=== PATIENT | female | born 1995 | race Caucasian/White ===

== ENCOUNTER 2020-01-16 00:26 | Emergency (ER) | payer MEDICAID, OTHER ==
[2020-01-16] MEDS ORDERED: Sodium Chloride 0.9% 1,000 ML IV ONE (00:47)
--- NOTE | 2020-01-16 00:54 | EDM.PDOCBH ---
ED HPI GENERAL MEDICAL PROBLEM - General Chief Complaint: Drug or Alcohol Abuse Stated Complaint: [facility] Time Seen by Provider: 01/16/20 00:48 Source of Information: Reports: Patient, EMS History Limitations: Reports: Intoxication - History of Present Illness INITIAL COMMENTS - FREE TEXT/NARRATIVE: TRIAGE NOTE -- Pt presents to ER with [facility] for complaints of alcohol intoxication. Pt apparently had "a lot of [employer] tonight" and then EMS/PD were called to scene for an unknown reason. Upon EMS arrival, pt smelled strongly of ETOH and was combative with them en route to the ER. Upon arrival to the ER, pt alert to verbal. Pt vomiting and dry heaving. Pt states that she has a hx of asthma and hasn't drank in 3 years. EMS stated that pt has gone to multiple parties with a lot of people at them recently and had a negative COVID test on 12/16/19, but is still having complaints of a cough. Pt answering RNs questions mildly appropriately when asked questions. Pt states that she has a hx of asthma. The patient insists that this episode of intoxication is isolated and is a first for her. Denies previous bouts such as this. Non-smoker. Denies any chronic medical problems or medications. Denies any surgeries. No other focused history can be obtained secondary to the patient's intoxicated state. - Related Data Allergies Allergy/AdvReac Type Severity Reaction Status Date / Time vancomycin Allergy Anaphylactic Verified 01/16/20 00:48 Shock Home Meds: Home Meds Venlafaxine [Effexor] 75 mg PO BID 12/17/18 [History] ClonazePAM [KlonoPIN] 2 mg PO DAILY #3 tablet 01/16/20 [Rx] Past Medical History - Past Health History Medical/Surgical History: Denies Medical/Surgical History HEENT History: Reports: Impaired Vision Cardiovascular History: Reports: None Respiratory History: Reports: Asthma, Other (See Below) Other Respiratory History: Bronchitis, pneumonia Gastrointestinal History: Reports: None Genitourinary History: Reports: STD, UTI, Recurrent [employer]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: Musculoskeletal History: Reports: None Neurological History: Reports: Concussion, Migraines Psychiatric History: Reports: Addiction, Anxiety, Bipolar, Depression, Suicidal Ideation, Other (See Below) Endocrine/Metabolic History: Reports: None Hematologic History: Reports: Blood Transfusion(s) Immunologic History: Reports: None Oncologic (Cancer) History: Reports: None Dermatologic History: Reports: None - Infectious Disease History Infectious Disease History: Reports: Chicken Pox, Shingles - Past Surgical History Cardiovascular Surgical History: Reports: None Respiratory Surgical History: Reports: None GI Surgical History: Reports: None Female Surgical History: Reports: D&C Endocrine Surgical History: Reports: None Neurological Surgical History: Reports: None Musculoskeletal Surgical History: Reports: None Oncologic Surgical History: Reports: None Dermatological Surgical History: Reports: None Social & Family History - Family History Family Medical History: Noncontributory Cardiac: Reports: Heart Murmur, Other (See Below) Other Cardiac Family History: Congestive Heart failure Respiratory: Reports: Asthma : Reports: UTI, Recurrent Musculoskeletal: Reports: Arthritis Neurological: Reports: Alzheimers Disease, Dementia, Migraines Psychiatric: Reports: ADHD, Anxiety, Autism, Bipolar, Depression, Panic Attack, Suicide Attempt Endocrine/Metabolic: Reports: Diabetes, type II, Hyperthyroidism Oncologic: Reports: Colon, Skin - Tobacco Use Smoking Status *Q: Never Smoker - Caffeine Use Caffeine Use: Reports: Soda Caffeine Use Comment: Unknown - Recreational Drug Use Recreational Drug Use: No - Living Situation & Occupation Living situation: Reports: with Significant Other ED ROS GENERAL - Review of Systems Review Of Systems: Comprehensive ROS is negative, except as noted in HPI. ED EXAM, BEHAVIORAL HEALTH - Physical Exam Exam: See Below Exam Limited By: No Limitations General Appearance: WD/WN, No Apparent Distress, Other (A bit somnolent at this point) Eye Exam: Bilateral Eye: EOMI, PERRL Ears: Normal External Exam Nose: Normal Inspection Throat/Mouth: Normal Inspection Head: Atraumatic, Normocephalic Neck: Normal Inspection, Supple, Non-Tender Respiratory/Chest: No Respiratory Distress, Lungs Clear, Normal Breath Sounds, No Accessory Muscle Use Cardiovascular: Regular Rate, Rhythm GI/Abdominal: Soft, Non-Tender Back Exam: Normal Inspection Extremities: Normal Inspection, Non-Tender, No Pedal Edema Neurological: Alert (Arousable to attentiveness and responsiveness but drops off to sleep readily), No Motor/Sensory Deficits Psychiatric: Other (Withdrawn) Skin Exam: Warm, Dry COURSE, BEHAVIORAL HEALTH COMP - Course Vital Signs: Last Vital Signs Temp 35.5 C L 01/16/20 00:43 Pulse 91 01/16/20 00:43 Resp 14 01/16/20 00:43 BP 98/68 01/16/20 00:43 Pulse Ox 100 01/16/20 00:43 Orders, Labs, Meds: Active Orders 24 hr Category Date Time Status CULTURE URINE [RM] Stat Lab 01/16/20 04:24 Received HEPATITIS B SURFACE AG [CHEM] Stat Lab 01/16/20 01:25 Received Sodium Chloride 0.9% [Normal Saline] 1,000 ml Med 01/16/20 03:30 Active IV ASDIRECTED Medication Orders Sodium Chloride (Normal Saline) 1,000 mls @ 150 mls/hr IV ASDIRECTED URSZULA Last Admin: 01/16/20 03:37 Dose: 150 mls/hr Laboratory Tests 01/16/20 01/16/20 01/16/20 Range/Units 01:00 01:00 01:00 WBC 8.38 (3.98-10.04) K/mm3 RBC 4.12 (3.98-5.22) M/mm3 Hgb 12.0 (11.2-15.7) gm/dl Hct 38.4 (34.1-44.9) % MCV 93.2 (79.4-94.8) fl MCH 29.1 (25.6-32.2) pg MCHC 31.3 L (32.2-35.5) g/dl RDW Std Deviation 50.5 H (36.4-46.3) fL Plt Count 219 (182-369) K/mm3 MPV 10.3 (9.4-12.3) fl Neutrophils % (Manual) 62 H (40-60) % Band Neutrophils % 0 (0-10) % Lymphocytes % (Manual) 26 (20-40) % Atypical Lymphs % 0 % Monocytes % (Manual) 8 (2-10) % Eosinophils % (Manual) 3 (0.7-5.8) % Basophils % (Manual) 1 (0.1-1.2) Platelet Estimate Adequate RBC Morph Comment Normal Sodium 142 (136-145) mEq/L Potassium 4.1 (3.5-5.1) mEq/L Chloride 106 (98-107) mEq/L Carbon Dioxide 25 (21-32) mEq/L Anion Gap 15.1 H (5-15) BUN 15 (7-18) mg/dL Creatinine 0.7 (0.55-1.02) mg/dL Est Cr Clr Drug Dosing 114.01 mL/min Estimated GFR (MDRD) > 60 (>60) mL/min BUN/Creatinine Ratio 21.4 H (14-18) Glucose 113 H (74-106) mg/dL Calcium 9.1 (8.5-10.1) mg/dL Total Bilirubin 0.3 (0.2-1.0) mg/dL AST 34 (15-37) U/L ALT 16 (14-59) U/L Alkaline Phosphatase 64 (46-116) U/L Total Protein 7.6 (6.4-8.2) g/dl Albumin 4.0 (3.4-5.0) g/dl Globulin 3.6 gm/dL Albumin/Globulin Ratio 1.1 (1-2) Urine Color (Yellow) Urine Appearance (Clear) Urine pH (5.0-8.0) Ur Specific [place] (1.005-1.030) Urine Protein (Negative) Urine Glucose (UA) (Negative) Urine Ketones (Negative) Urine Occult Blood (Negative) Urine Nitrite (Negative) Urine Bilirubin (Negative) Urine Urobilinogen (0.2-1.0) Ur Leukocyte Esterase (Negative) Urine RBC (0-5) /hpf Urine WBC (0-5) /hpf Ur Squamous Epith Cells (0-5) /hpf Urine Bacteria (FEW) /hpf Urine Mucus (FEW) /hpf Urine HCG, Qual (NEGATIVE) Urine Opiates Screen (NKOPTZ=816) Ur Buprenorphine Scrn (CUTOFF=10) Ur Oxycodone Screen (LAK3ZO=248) Urine Methadone Screen (TMWVPF=255) Ur Propoxyphene Screen (CZDJXF=112) Ur Barbiturates Screen (XAAPLY=042) Ur Tricyclics Screen (OXQAEE=889) Ur Phencyclidine Scrn (CUTOFF=25) Ur Amphetamine Screen (RKYVTY=070) U Methamphetamines Scrn (CRAYMG=978) U Benzodiazepines Scrn (YYIJGY=708) U Cocaine Metab Screen (BWIJAT=085) U Marijuana (THC) Screen (CUTOFF=50) Ethyl Alcohol 0.20 (0.00) gm% Hepatitis C Antibody Negative (NEGATIVE) HIV-1 Ab Rapid Screen Negative (NEGATIVE) 01/16/20 01/16/20 01/16/20 Range/Units 04:24 04:24 04:24 WBC (3.98-10.04) K/mm3 RBC (3.98-5.22) M/mm3 Hgb (11.2-15.7) gm/dl Hct (34.1-44.9) % MCV (79.4-94.8) fl MCH (25.6-32.2) pg MCHC (32.2-35.5) g/dl RDW Std Deviation (36.4-46.3) fL Plt Count (182-369) K/mm3 MPV (9.4-12.3) fl Neutrophils % (Manual) (40-60) % Band Neutrophils % (0-10) % Lymphocytes % (Manual) (20-40) % Atypical Lymphs % % Monocytes % (Manual) (2-10) % Eosinophils % (Manual) (0.7-5.8) % Basophils % (Manual) (0.1-1.2) Platelet Estimate RBC Morph Comment Sodium (136-145) mEq/L Potassium (3.5-5.1) mEq/L Chloride (98-107) mEq/L Carbon Dioxide (21-32) mEq/L Anion Gap (5-15) BUN (7-18) mg/dL Creatinine (0.55-1.02) mg/dL Est Cr Clr Drug Dosing mL/min Estimated GFR (MDRD) (>60) mL/min BUN/Creatinine Ratio (14-18) Glucose (74-106) mg/dL Calcium (8.5-10.1) mg/dL Total Bilirubin (0.2-1.0) mg/dL AST (15-37) U/L ALT (14-59) U/L Alkaline Phosphatase (46-116) U/L Total Protein (6.4-8.2) g/dl Albumin (3.4-5.0) g/dl Globulin gm/dL Albumin/Globulin Ratio (1-2) Urine Color Yellow (Yellow) Urine Appearance Clear (Clear) Urine pH 6.0 (5.0-8.0) Ur Specific [place] 1.020 (1.005-1.030) Urine Protein Negative (Negative) Urine Glucose (UA) Negative (Negative) Urine Ketones Negative (Negative) Urine Occult Blood Negative (Negative) Urine Nitrite Negative (Negative) Urine Bilirubin Negative (Negative) Urine Urobilinogen 0.2 (0.2-1.0) Ur Leukocyte Esterase Trace H (Negative) Urine RBC 0-5 (0-5) /hpf Urine WBC 5-10 H (0-5) /hpf Ur Squamous Epith Cells Not seen (0-5) /hpf Urine Bacteria Rare (FEW) /hpf Urine Mucus Not seen (FEW) /hpf Urine HCG, Qual Negative (NEGATIVE) Urine Opiates Screen Negative (ZPTVSO=793) Ur Buprenorphine Scrn Negative (CUTOFF=10) Ur Oxycodone Screen Negative (FEY4VF=221) Urine Methadone Screen Negative (KUNVKC=296) Ur Propoxyphene Screen Negative (SNWAOH=023) Ur Barbiturates Screen Negative (BMYCZR=409) Ur Tricyclics Screen Negative (KTULWP=440) Ur Phencyclidine Scrn Negative (CUTOFF=25) Ur Amphetamine Screen Negative (UNQXST=455) U Methamphetamines Scrn Negative (MHCLRC=009) U Benzodiazepines Scrn Negative (JWOTJB=628) U Cocaine Metab Screen Negative (JZTXXW=561) U Marijuana (THC) Screen Presumptive positive H (CUTOFF=50) Ethyl Alcohol (0.00) gm% Hepatitis C Antibody (NEGATIVE) HIV-1 Ab Rapid Screen (NEGATIVE) Medications Generic Name Dose Route Start Last Admin Trade Name Freq PRN Reason Stop Dose Admin Sodium Chloride 1,000 mls @ 150 mls/hr 01/16/20 03:30 01/16/20 03:37 Normal Saline IV 150 mls/hr ASDIRECTED URSZULA Administration Discontinued Medications Generic Name Dose Route Start Last Admin Trade Name Freq PRN Reason Stop Dose Admin Sodium Chloride 1,000 mls @ 1,000 mls/hr 01/16/20 00:47 01/16/20 00:54 Normal Saline IV 01/16/20 01:46 1,000 mls/hr ONETIME ONE Administration Lorazepam 1 mg 01/16/20 04:31 Ativan IVPUSH 01/16/20 04:32 ONETIME ONE Ondansetron HCl 4 mg 01/16/20 01:02 01/16/20 01:07 Zofran IVPUSH 01/16/20 01:03 4 mg ONETIME ONE Administration Ondansetron HCl Confirm 01/16/20 01:05 01/16/20 02:38 Zofran Administered 01/16/20 01:06 Not Given Dose 4 mg .ROUTE .STK-MED ONE Re-Assessment/Re-Exam: The patient has done well with supportive care. She is received IV fluids. She has had a dose of Ativan. She is amenable to being discharged to home and there is no reason to admit her to the hospital at this point. She insists that this was an isolated episode of alcohol abuse and intoxication and that this is not a pattern and there is no need for rehab or admission for that matter. She is being discharged to the care of her significant other. She will receive a prescription for a benzodiazepine to take for a limited time to [place] off withdrawal symptoms and is strongly admonished to abstain from alcohol. Departure - Departure Time of Disposition: 06:15 Disposition: Home, Self-Care 01 Condition: Good Clinical Impression: Alcohol intoxication Qualifiers: Complication of substance-induced condition: uncomplicated Qualified Code(s): F10.920 - Alcohol use, unspecified with intoxication, uncomplicated - Discharge Information Prescriptions: ClonazePAM [KlonoPIN] 2 mg PO DAILY #3 tablet Additional Instructions: You have been given a prescription for Klonopin medication to take once daily for 3 days to minimize the risk of withdrawal symptoms after stopping drinking alcohol. Do not drink alcohol for at least a week. If you have any problems with cessation from alcohol or if this is a pattern you need to seek help for this. Your primary can help with that or in any event return to the ER for help with referral in this matter. Feel free to return to the emergency department at any time for any troubling issues medically or with alcohol abuse. Sepsis Event Note - Evaluation Sepsis Screening Result: No Definite Risk - Focused Exam Vital Signs: Vital Signs Temp Pulse Resp BP Pulse Ox 01/16/20 00:43 35.5 C L 91 14 98/68 100 Date Exam was Performed: 01/16/20 Time Exam was Performed: 06:14 - My Orders Last 24 Hours: My Active Orders 01/16/20 01:25 HEPATITIS B SURFACE AG [CHEM] Stat 01/16/20 03:30 Sodium Chloride 0.9% [Normal Saline] 1,000 ml IV ASDIRECTED 01/16/20 04:24 CULTURE URINE [RM] Stat - Assessment/Plan Last 24 Hours: My Active Orders 01/16/20 01:25 HEPATITIS B SURFACE AG [CHEM] Stat 01/16/20 03:30 Sodium Chloride 0.9% [Normal Saline] 1,000 ml IV ASDIRECTED 01/16/20 04:24 CULTURE URINE [RM] Stat
[2020-01-16] MEDS ORDERED: Ondansetron 4 MG/2 ML SDV IVPUSH ONE (01:02)
[2020-01-16] MEDS ORDERED: Ondansetron 4 MG/2 ML SDV ONE (01:05)
[2020-01-16] MEDS ORDERED: Sodium Chloride 0.9% 1,000 ML IV SCH (03:30)
[2020-01-16] MEDS ORDERED: LORazepam 2 MG/ML SDV IVPUSH ONE (04:31)
[2020-01-16 10:39] VITALS: BP 94/46; PULSE 87
== END 2020-01-16 10:41 | disposition home or self-care (01) ==
LOC: JD.ED 00:26
DX: F10.120 Alcohol abuse with intoxication, uncomplicated (principal); Y90.0 Blood alcohol level of less than 20 mg/100 ml; F41.9 Anxiety disorder, unspecified; F31.9 Bipolar disorder, unspecified; Z88.1 Allergy status to other antibiotic agents; Z79.899 Other long term (current) drug therapy
CPT/HCPCS: 36415; 80053; 80306; 80307; 81001; 81025; 85007; 85027; 86803; 87086; 87340; 87449; 96361; 96374; 99284; J2405; J7030; G0433